=== PATIENT | female | born 1935 | race Caucasian/White ===

== ENCOUNTER 2022-10-16 08:19 | Day surgery (SDC) | payer MEDICARE, OTHER ==
[~2022-10-16 08:19] MED LIST: Lactated Ringers 1,000 ML IV SCH; Lidocaine 1% 10 ML MDV ONE; Lidocaine 1%/Sod Bicarbonate in NS 8.4% 1 ML Syringe IDERM PRN; Propofol 200 MG/20 ML SDV ONE; Sodium Chloride 0.9% 10 ML Syringe FLUSH PRN; Sodium Chloride 0.9% 10 ML Syringe FLUSH SCH; Triamcinolone Acetonide 40 MG/ML 1 ML SDV ONE; ceFAZolin 2 GM Vial ONE
[2022-10-16] MEDS ORDERED: Lidocaine 1% 4 ML ONE (08:23)
[2022-10-16] MEDS: Bupivacaine 0.25% 10 ML SDV ONE ×2 (08:33→08:41)
[2022-10-16] MEDS ORDERED: Lidocaine 1% 10 ML MDV ONE (12:31)
== END 2022-10-16 09:15 | disposition home or self-care (01) ==
LOC: JD.SDS 08:19
PROVIDERS: ATTEND Orthopaedic Surgery
DX: G56.03 Carpal tunnel syndrome, bilateral upper limbs (principal); G56.13 Other lesions of median nerve, bilateral upper limbs; I10 Essential (primary) hypertension; Z88.5 Allergy status to narcotic agent; Z79.899 Other long term (current) drug therapy; Z98.890 Other specified postprocedural states; Z90.49 Acquired absence of other specified parts of digestive tract
CPT/HCPCS: 20526; 64721; J0690; J2704; J3301; J3490; J7120; 01810; 99100